=== PATIENT | female | born 1950 | race Caucasian/White ===

== ENCOUNTER 2019-10-01 12:36 | Outpatient (CLI) | payer MEDICARE, SELFPAY ==
[2019-10-01 14:07] LABS: Anion Gap 17.2 (5-19); Blood Urea Nitrogen 16 mg/dL (8-23); Calcium 10.3 mg/dL (8.5-10.5); Carbon Dioxide 26 mmol/L (22-29); Chloride 97 mmol/L (98-107); Glucose 161 mg/dL (65-115); Potassium 4.2 mmol/L (3.5-5.1); Sodium 136 mmol/L (136-145)
[2019-10-01 14:18] LABS: Creatinine Urine, Random 36 mg/dL (28-217); Microalbum Creatinine Ratio Ur 56 mg/dL (0-20); Microalbumin Random Urine 2 ug/dL (0-20)
== END 2019-10-01 12:37 | disposition home or self-care (01) ==
LOC: LAB 12:36
PROVIDERS: Family Provider Internal Medicine; PCP Internal Medicine; Visit Provider Internal Medicine Nephrology
DX: N18.9 Chronic kidney disease, unspecified (principal)
CPT/HCPCS: 80069; 82044

== ENCOUNTER → 2019-10-10 13:46 | Outpatient (BNVA) | payer MEDICARE, SELFPAY | PROVIDERS: Family Provider Internal Medicine; PCP Internal Medicine; Visit Provider Internal Medicine | DX: E11.9 Type 2 diabetes mellitus without complications (principal) | CPT/HCPCS: 83036 ==

== ENCOUNTER 2020-01-25 12:48 | Outpatient (CLI) | payer MEDICARE, SELFPAY ==
--- NOTE | 2020-01-25 13:00 | USCV_ITS ---
Noemí Kitchen Age: 69 Gender: F : 1950 Exam Date: 01/25/2020 13:20 Ordering Phys: Barrie Hays MD (Andy) ([email or web address]/[facility] [place]) Technologist: Janet Jaime Exam Location: [facility] [place] Indication: STENOSIS Risk Factors: Previous Vascular Surgery: Right Brachial BP: / Left Brachial BP: / Right Left Velocity (cm/s) Spectral Plaque Velocity (cm/s) Spectral Plaque Syst/Diast Broadening Syst/Diast Broadening 82.70/ 18.70 Prox CCA 56.50 / 18.60 52.90/ 12.10 Mid CCA 55.20 / 15.30 59.50/ 12.10 Distal CCA 47.90 / 15.30 30.80/ 11.50 Prox ICA 66.50 / 23.30 55.70/ 27.40 Mid ICA 68.80 / 20.00 54.00/ 18.90 Distal ICA 55.00 / 20.00 77.20 ECA 54.50 1.05 ICA/CCA 1.25 Antegrade Vertebral Antegrade 27.90/ 6.00 cm/s 40.00/ 13.80 cm/s Tri Subclavian Tri 67.10 98.10 FINDINGS Moderate heterogeneous plaques of the left bifurcation and ICA. Mild to moderate scattered plaques in the right ICA Antegrade flow in the vertebral arteries bilaterally Normal Doppler velocities in the subclavian arteries bilaterally. Normal Doppler velocities in the external carotid arteries bilaterally CONCLUSIONS Moderate heterogeneous plaques of the left bifurcation and internal carotid artery, with elevation of the velocity ratios suggesting 16 to 49% stenosis. Mild to moderate scattered plaque to the right internal carotid artery Compared to the study from 07/17/2019, there is some improvement of the stenosis, based on the flow velocities, on the left side Dr Lotus Tejeda MD [facility] (Electronically Signed) Final Date: 25 January 2020 18:28 S
== END 2020-01-25 12:49 | disposition home or self-care (01) ==
PROVIDERS: PCP Internal Medicine; Visit Provider Thoracic Surgery (Cardiothoracic Vascular Surgery)
DX: I65.23 Occlusion and stenosis of bilateral carotid arteries (principal)
CPT/HCPCS: 93880

== ENCOUNTER → 2020-04-01 14:10 | Outpatient (BNVA) | payer MEDICARE, SELFPAY | PROVIDERS: PCP Internal Medicine; Visit Provider Nurse Practitioner Family | DX: J06.9 Acute upper respiratory infection, unspecified (principal); Z11.59 Encounter for screening for other viral diseases; Z20.828 Contact with and (suspected) exposure to other viral communicable diseases | CPT/HCPCS: 87635 ==

== ENCOUNTER → 2020-04-16 11:23 | Outpatient (BNVA) | payer MEDICARE, SELFPAY | PROVIDERS: PCP Internal Medicine; Visit Provider Nurse Practitioner Family | DX: U07.1 COVID-19 (principal) | CPT/HCPCS: 87635 ==

== ENCOUNTER → 2020-05-28 13:46 | Outpatient (BNVA) | payer MEDICARE, SELFPAY | PROVIDERS: PCP Internal Medicine; Visit Provider Internal Medicine | DX: E11.22 Type 2 diabetes mellitus with diabetic chronic kidney disease (principal); I12.9 Hypertensive chronic kidney disease with stage 1 through stage 4 chronic kidney disease, or unspecified chronic kidney disease; N18.9 Chronic kidney disease, unspecified | CPT/HCPCS: 83036; 85025 ==

== ENCOUNTER → 2020-05-29 10:59 | Outpatient (BNVA) | payer MEDICARE, SELFPAY | PROVIDERS: PCP Internal Medicine; Visit Provider Internal Medicine | DX: E11.22 Type 2 diabetes mellitus with diabetic chronic kidney disease (principal); I12.9 Hypertensive chronic kidney disease with stage 1 through stage 4 chronic kidney disease, or unspecified chronic kidney disease; N18.9 Chronic kidney disease, unspecified | CPT/HCPCS: 80053; 84443 ==

== ENCOUNTER 2020-06-16 10:56 | Outpatient (CLI) | payer MEDICARE, SELFPAY ==
[2020-06-16 11:31] LABS: Basophils % 0.2 %; Eosinophils # 0.1 10^3/uL (0.0-0.8); Eosinophils % 0.7 %; Hematocrit 37.3 % (37.0-47.0); Hemoglobin 11.8 g/dL (11.5-15.3); Lymphocytes # 1.2 10^3/uL (0.8-4.8); Lymphocytes % 12.3 %; Mean Corpuscular HGB Conc 31.6 g/dL (30.0-36.0); Mean Corpuscular Hemoglobin 27.2 pg (28.0-34.0); Mean Corpuscular Volume 85.9 fL (81-99); Monocytes # 0.7 10^3/uL (0.2-0.9); Monocytes % 6.7 %; Neutrophils # 7.82 10^3/uL (1.8-7.7); Neutrophils % 79.7 %; Nucleated Red Blood Cells % 0 %; Platelet Count 248 10^3/cmm (130-400); Red Blood Count 4.34 10^6/uL (4.1-5.3); Red Cell Distribution Width 15.7 % (12.1-15.1); White Blood Count 9.8 10^3/uL (4.0-10.0)
[2020-06-16 11:50] LABS: Urine Creatinine 23 mg/dL (28-217); Urine Protein Random 7 mg/dL
[2020-06-16 12:03] LABS: Calcium 9.4 mg/dL (8.5-10.5); Parathyroid Hormone 43.5 pg/mL (15-65)
[2020-06-16 12:09] LABS: 25 Hydroxy Vitamin D 39 ng/mL (30-100); Anion Gap 14.4 (5-19); Blood Urea Nitrogen 30 mg/dL (8-23); Calcium 9.6 mg/dL (8.5-10.5); Carbon Dioxide 25 mmol/L (22-29); Chloride 102 mmol/L (98-107); Glomerular Filtration Rate 40.6 mL/min (90-130); Glucose 173 mg/dL (65-115); Phosphorus 2.8 mg/dL (2.5-4.5); Potassium 4.4 mmol/L (3.5-5.1); Sodium 137 mmol/L (136-145)
== END 2020-06-16 10:57 | disposition home or self-care (01) ==
LOC: LAB 11:01
PROVIDERS: PCP Internal Medicine; Visit Provider Registered Nurse
DX: N18.30 Chronic kidney disease, stage 3 unspecified (principal)
CPT/HCPCS: 36415; 80069; 82306; 82310; 82570; 83970; 84156; 85025

== ENCOUNTER 2020-12-22 12:29 | Outpatient (CLI) | payer MEDICARE, SELFPAY ==
[2020-12-22 13:25] LABS: Albumin Level 4.1 g/dL (3.5-5.2); Blood Urea Nitrogen 26 mg/dL (8-23); Calcium 9.5 mg/dL (8.5-10.5); Carbon Dioxide 28 mmol/L (22-29); Chloride 96 mmol/L (98-107); Glomerular Filtration Rate 37.3 mL/min (90-130); Glucose 265 mg/dL (65-115); Phosphorus 3.6 mg/dL (2.5-4.5); Sodium 132 mmol/L (136-145)
[2020-12-22 13:32] LABS: Creatinine Urine, Random 17 mg/dL (28-217); Microalbumin Random Urine 12 ug/dL (0-20)
[2020-12-22 13:39] LABS: Microalbum Creatinine Ratio Ur 706 mg/dL (0-20)
[2020-12-22 13:41] LABS: Calcium 9.2 mg/dL (8.5-10.5); Parathyroid Hormone 33.9 pg/mL (15-65)
[2020-12-22 13:50] LABS: Basophils % 0.5 %; Eosinophils # 0.1 10^3/uL (0.0-0.8); Eosinophils % 1.5 %; Hematocrit 40.2 % (37.0-47.0); Hemoglobin 12.6 g/dL (11.5-15.3); Lymphocytes # 1.4 10^3/uL (0.8-4.8); Mean Corpuscular HGB Conc 31.3 g/dL (30.0-36.0); Mean Corpuscular Hemoglobin 26.6 pg (28.0-34.0); Mean Corpuscular Volume 84.8 fL (81-99); Mean Platelet Volume 10.2 fL (7.4-10.4); Monocytes # 0.8 10^3/uL (0.2-0.9); Monocytes % 9.2 %; Neutrophils # 6.17 10^3/uL (1.8-7.7); Neutrophils % 72.3 %; Nucleated Red Blood Cells % 0 %; Platelet Count 269 10^3/cmm (130-400); Red Blood Count 4.74 10^6/uL (4.1-5.3); Red Cell Distribution Width 14.4 % (12.1-15.1); White Blood Count 8.5 10^3/uL (4.0-10.0)
== END 2020-12-22 12:30 | disposition home or self-care (01) ==
PROVIDERS: PCP Internal Medicine; Visit Provider Internal Medicine Nephrology
DX: N18.32 Chronic kidney disease, stage 3b (principal)
CPT/HCPCS: 80069; 82044; 82310; 83970; 85025

== ENCOUNTER 2021-02-09 11:33 | Outpatient (CLI) | payer MEDICARE, SELFPAY ==
--- NOTE | 2021-02-09 12:45 | USCV_ITS ---
Noemí Kitchen Age: 70 Gender: F : 1950 Exam Date: 02/09/2021 12:27 Ordering Phys: Barrie Hays MD (Andy) ([email or web address]/[facility] [place] Technologist: Carisa Gonsalves Exam Location: [facility] [place] Indication: RCEA Risk Factors: Unknown Previous Vascular Surgery: RCEA Right Brachial BP: / Left Brachial BP: / Right Left Velocity (cm/s) Spectral Plaque Velocity (cm/s) Spectral Plaque Syst/Diast Broadening Syst/Diast Broadening 89.30/ 18.70 Prox CCA 56.80 / 15.80 73.90/ 20.90 Mid CCA 47.50 / 15.30 67.30/ 15.40 Hetro Distal CCA 81.60 / 26.30 Hetro 42.10/ 11.00 Hetro Prox ICA 94.30 / 23.60 Hetro 61.40/ 16.50 Mid ICA 79.60 / 28.50 70.50/ 22.90 Distal ICA 90.10 / 30.00 80.00 Hetro ECA 176.30 Hetro 0.95 ICA/CCA 1.98 Antegrade Vertebral Antegrade 33.30/ 6.60 cm/s 41.30/ 13.80 cm/s Tri Subclavian Tri 62.80 122.5 0 FINDINGS Moderate heterogeneous plaques of the left bifurcation and proximal left internal carotid artery. Mild to moderate heterogeneous plaques of the right bifurcation and internal carotid artery. Heavy heterogeneous plaques at the proximal segment of the left external carotid artery. Antegrade flow in the vertebral arteries bilaterally Normal Doppler velocities in the subclavian arteries bilaterally CONCLUSIONS Moderate heterogeneous plaques of the left bifurcation and proximal left internal carotid artery with Doppler features consistent with less than 50% stenosis Mild to moderate heterogeneous plaques of the right bifurcation and internal carotid artery with Doppler features consistent with less than 50% stenosis. Elevated velocity in the external carotid artery on the left side, suggestive of hemodynamically significant stenosis. Dr Lotus Tejeda MD [facility] (Electronically Signed) Final Date: 10 February 2021 19:44 S
== END 2021-02-09 11:34 | disposition home or self-care (01) ==
LOC: US 11:42
PROVIDERS: PCP Internal Medicine; Visit Provider Thoracic Surgery (Cardiothoracic Vascular Surgery)
DX: I65.23 Occlusion and stenosis of bilateral carotid arteries (principal)
CPT/HCPCS: 93880

== ENCOUNTER → 2021-03-05 11:48 | Outpatient (BNVA) | payer MEDICARE, SELFPAY | PROVIDERS: PCP Internal Medicine; Visit Provider Internal Medicine | DX: E11.9 Type 2 diabetes mellitus without complications (principal); I10 Essential (primary) hypertension; I73.9 Peripheral vascular disease, unspecified | CPT/HCPCS: 80053; 83036; 84443 ==

== ENCOUNTER 2021-06-29 14:40 | Outpatient (CLI) | payer MEDICARE, SELFPAY ==
[2021-06-29 15:25] LABS: Basophils % 0.3 %; Eosinophils # 0.1 10^3/uL (0.0-0.8); Eosinophils % 0.6 %; Hematocrit 37.7 % (37.0-47.0); Lymphocytes # 1.7 10^3/uL (0.8-4.8); Lymphocytes % 16.6 %; Mean Corpuscular HGB Conc 31.8 g/dL (30.0-36.0); Mean Corpuscular Hemoglobin 27.6 pg (28.0-34.0); Mean Corpuscular Volume 86.7 fl (81-99); Mean Platelet Volume 10.4 fL (7.4-10.4); Monocytes # 0.8 10^3/uL (0.2-0.9); Monocytes % 7.5 %; Neutrophils # 7.67 10^3/uL (1.8-7.7); Neutrophils % 74.4 %; Nucleated Red Blood Cells % 0 %; Platelet Count 233 10^3/cmm (130-400); Red Blood Count 4.35 10^6/uL (4.1-5.3); Red Cell Distribution Width 15.5 % (12.1-15.1); White Blood Count 10.3 10^3/uL (4.0-10.0)
[2021-06-29 15:55] LABS: Calcium 9.7 mg/dL (8.5-10.5)
[2021-06-29 16:00] LABS: Albumin Level 3.8 g/dL (3.5-5.2); Anion Gap 15.4 (5-19); Blood Urea Nitrogen 21 mg/dL (8-23); Calcium 9.6 mg/dL (8.5-10.5); Carbon Dioxide 24 mmol/L (22-29); Chloride 102 mmol/L (98-107); Glomerular Filtration Rate 34.3 mL/min (90-130); Glucose 311 mg/dL (65-115); Phosphorus 2.3 mg/dL (2.5-4.5); Potassium 4.4 mmol/L (3.5-5.1); Sodium 137 mmol/L (136-145)
[2021-06-29 16:08] LABS: 25 Hydroxy Vitamin D 31 ng/mL (30-100)
[2021-06-29 16:17] LABS: Creatinine Urine, Random 17 mg/dL (28-217); Microalbumin Random Urine 2 ug/dL (0-20)
[2021-06-29 16:23] LABS: Microalbum Creatinine Ratio Ur 118 mg/dL (0-20)
== END 2021-06-29 14:41 | disposition home or self-care (01) ==
LOC: LAB 14:46
PROVIDERS: PCP Internal Medicine; Visit Provider Internal Medicine Nephrology
DX: N18.32 Chronic kidney disease, stage 3b (principal)
CPT/HCPCS: 36415; 80069; 82044; 82306; 82310; 83970; 85025

== ENCOUNTER 2021-07-28 08:51 | Outpatient (CLI) | payer MEDICARE, SELFPAY ==
[2021-07-28 09:13] VITALS: BMI 30.2
--- NOTE | 2021-07-28 09:13 | ECG_ITS ---
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 Interpretive Statements NAME OF STUDY: LEXISCAN SESTAMIBI STRESS TEST INDICATION: Chest Pain PROCEDURE: At the baseline, the blood pressure was 117/57 mmHg, oxygen saturation 96% with a heart rate of 71 bpm. The electrocardiogram showed normal sinus rhythm, normal axis. Poor anterior R wave progression. The Lexiscan was infused over a period of 20 seconds. A total of 0.4 milligrams of Lexiscan was infused. The stress phase was continued for a total of 5 minutes. Heart rate at the end of the stress phase was 96 bpm, oxygen saturation 97% with a blood pressure of 151/59 mmHg. The EKG at the peak infusion revealed sinus rhythm with no significant ST-T wave changes. The study was terminated due to protocol completion. Sestamibi was injected 20 seconds after the Lexiscan infusion. Blood pressure at the end of the recovery phase was 127/47 mmHg, oxygen saturation 98% with a heart rate of 79 beats per minute. CONCLUSION: 1. Normal EKG response to LexiScan infusion. 2. No LexiScan induced chest pain or cardiac arrhythmia. 3. Normal blood pressure and heart rate response. 4. Sestamibi/sestamibi perfusion scan pending; see separate report. Electronically Signed On 07-30-2021 17:40:26 SUBGRADE TESTER by Romina Betancourt M.D. [email or web address]
--- NOTE | 2021-07-28 09:14 | NMCV_ITS ---
NM anselmo perf SPECT r/s* [id number] Noemí Kitchen Age: 71 Gender: F : 1950 Exam Date: 07/28/2021 10:08 Ordering Phys: Romina Betancourt MD ([email or web address]) Technologist: ZAIDA Pillai Exam Location: [facility] Indications: SHORTNESS OF BREATH ON EXERTION STRESS TEST Please [facility] IMAGE PROTOCOL Rest/Stress 1 Lexiscan Day Radiopharmaceutical Dose (mCi) Administration Site Administered by Rest: Tc-99m 10.7 IV ZAIDA Astorga Sestamibi Stress:Tc-99m 32.4 IV ZAIDA Astorga Sestamibi Rest: 28-Jul-2021 60 Discovery 630 Stress: 28-Jul-2021 30 Discovery 630 Supine position only as patient was unable to lay prone. 0.4mg Lexiscan. SPECT RESULTS Technical Quality: Excellent Raw Data Analysis: Normal Image Corrections: No attenuation or motion correction applied Summed Stress Score: 3 Summed Rest Score: 0 Summed Difference Score: 3 PERFUSION FINDINGS Small sized perfusion abnormality of mild severiry of mid to apical anterior and apical lateral knight of stress images. FUNCTIONAL RESULTS (calculated via Gated SPECT) Stress Image LV EF (%): 81 Stress EDV (mL):36 TID: 0.94 Stress ESV (mL):7 FUNCTIONAL FINDINGS: The left ventricle is normal in size. Transient Ischemia Dilatation of 0.94. There is normal left ventricular systolic function. The left ventricular ejection fraction is normal with a value of 81%. There is normal left ventricular wall thickening with no regional wall abnormality. IMPRESSIONS 1. Small sized reversible perfusion abnormality of mild severiry of mid to apical anterior and apical lateral knight. 2. This may represent small area of ischemia in left anterior artery descending artery territory. However, in absence of prone imaging attenuation artifact cannot be ruled out. 3. Overall left ventricular systolic function is normal without regional wall motion abnormalities, LVEF=81%. 4. No prior similar studies to compare. Romina Betancourt MD (Electronically Signed) Final Date: 29 July 2021 12:20 S
[2021-07-28] MEDS: aminophylline 25 mg/mL SDV 10 mL IVP (11:04)
[2021-07-28 11:17] VITALS: BP 127/47; PULSE 79
== END 2021-07-28 08:52 | disposition home or self-care (01) ==
PROVIDERS: PCP Internal Medicine; Visit Provider Internal Medicine Cardiovascular Disease
DX: R06.09 Other forms of dyspnea (principal); I73.9 Peripheral vascular disease, unspecified; R06.02 Shortness of breath
CPT/HCPCS: 78452; 93017; A9500; J0280

== ENCOUNTER 2021-08-19 15:12 | Outpatient (CLI) | payer MEDICARE, SELFPAY ==
--- NOTE | 2021-08-19 15:45 | USCV_ITS ---
Imtiaz Noemí Age: 71 Gender: F : 1950 Exam Date: 08/19/2021 15:51 Ordering Phys: Romina Betancourt MD ([email or web address]) Technologist: MARINO [place] [facility] [place]: KNOWN OCCLUDED SFA Risk Factors: Previous Vascular Surgery: RIGHT LEFT BP: 136.0 / 68.00 BP: 137.0/ 87.00 0 0 Waveform Velocity (cm/s) Velocity (cm/s) Waveform Triphasic 93.3 Iliac Prox 105.1 Triphasic Triphasic 110.3 Iliac Mid 137.7 Triphasic Triphasic 197.0 Iliac Distal 136.5 Triphasic Triphasic 150.7 PAID INTERN 147.6 Monophasic Triphasic 158.5 SFA Prox 202.0 Monophasic Triphasic 124.6 SFA Mid 121.2 Monophasic Triphasic SFA Dist Monophasic 155.1 214.1 Triphasic 88.0 POP 70.1 Monophasic Triphasic 86.3 PRIMARY CARE PROVIDER 46.1 Monophasic Triphasic 121.3 DPA 34.2 Monophasic 1.0 BERKLEY 0.7 FINDINGS Normal resting BERKLEY of 1.0 on the right side Abnormal resting BERKLEY 0.7 on the left side. Moderate to heavy diffuse plaques on the left side involving the superficial femoral artery CONCLUSIONS Moderate PAD based on the BERKLEY on the left side. Moderate to heavy diffuse plaques in the superficial femoral artery on the left side. Normal resting BERKLEY on the right side. Consider exercise BERKLEY to better evaluate the functional significance. Dr Lotus Tejeda MD [facility] (Electronically Signed) Final Date: 21 August 2021 15:46 S
== END 2021-08-19 15:13 | disposition home or self-care (01) ==
LOC: RAD 15:17
PROVIDERS: PCP Internal Medicine; Visit Provider Internal Medicine Cardiovascular Disease
DX: I73.9 Peripheral vascular disease, unspecified (principal); I70.8 Atherosclerosis of other arteries
CPT/HCPCS: 93925

== ENCOUNTER → 2021-11-25 09:59 | Outpatient (BNVA) | payer MEDICARE, SELFPAY | PROVIDERS: PCP Internal Medicine; Visit Provider Specialist | DX: Z87.891 Personal history of nicotine dependence (principal); M25.561 Pain in right knee | CPT/HCPCS: 73560; 73565; 99203; 99204 ==

== ENCOUNTER 2021-12-16 13:13 | Outpatient (CLI) | payer MEDICARE, SELFPAY ==
--- NOTE | 2021-12-16 13:45 | MR_ITS ---
WS: [id number] MRI RIGHT KNEE HISTORY: pain COMPARISON: Radiograph 11/25/2021 Anterior cruciate ligament: Intact. Posterior cruciate ligament: Intact. Medial collateral ligament: Intact. Posterior lateral corner structures: Intact. Medial menisci: Mild intrasubstance degeneration in the posterior horn. No tear confirmed. Very minim al subluxation from the joint line. There is fraying along the articular surface of the posterior hor n towards the free edge with very minimal blunting. No definite tear. Lateral meniscus: Mild surface fraying along the posterior horn. Very slight blunting of the free edg e. I do believe there is probably a radial tear at the free edge secondary to the blunting of the pos terior horn. Extensor mechanism: Distal quadriceps tendon and patellar tendons are intact. Fluid and soft tissue: Small suprapatellar joint effusion. No Hunt's cyst. Osseous and articular structures: Patellofemoral compartment: Mild narrowing of the patellofemoral compartment. No marrow edema. There is mild thinning and fraying along the cartilage but no full-thickness defect. Medial compartment: Mild narrowing of the medial compartment. Moderate loss of cartilage involving th e weightbearing surface of the femoral condyle. Mild chondromalacia involving the medial tibial plate au. There are small osteophytes along the joint line. No fracture or marrow edema. Lateral compartment: Moderate narrowing of the lateral compartment. Moderate chondromalacia along the weightbearing surface of the femoral condyle. There are full-thickness defects in the cartilage exte nding to the cortical surface. There is additional milder chondromalacia involving the tibial platea u. Greatest area of narrowing is at the site of the suspected radial tear involving the posterior hor n. Small marginal osteophytes. MR/MR knee RT wo con* [id number] IMPRESSION: 1. Moderate degenerative osteoarthritis lateral compartment with joint space n arrowing and chondromalacia along the weightbearing surface of the femoral cond yle. Mild chondromalacia involving the lateral tibial plateau. 2. Mild narrowing medial compartment with moderate loss of the cartilage along the weightbearing surface of the femoral condyle. 3. Suspect radial tear posterior horn lateral meniscus at the free edge. 4. Bilateral mild fraying along the meniscal surfaces of the posterior horns, bilateral.
== END 2021-12-16 13:14 | disposition home or self-care (01) ==
LOC: RAD 13:15
PROVIDERS: PCP Internal Medicine; Visit Provider Specialist
DX: M17.11 Unilateral primary osteoarthritis, right knee (principal); M94.261 Chondromalacia, right knee
CPT/HCPCS: 73721

== ENCOUNTER 2021-12-28 12:08 | Outpatient (CLI) | payer MEDICARE, SELFPAY ==
[2021-12-28 13:00] LABS: Basophils % 0.4 %; Eosinophils # 0.2 10^3/uL (0.0-0.8); Eosinophils % 1.3 %; Hematocrit 36.4 % (37.0-47.0); Hemoglobin 11.7 g/dL (11.5-15.3); Lymphocytes # 1.4 10^3/uL (0.8-4.8); Lymphocytes % 12.5 %; Mean Corpuscular HGB Conc 32.1 g/dL (30.0-36.0); Mean Corpuscular Hemoglobin 26.8 pg (28.0-34.0); Mean Corpuscular Volume 83.5 fl (81-99); Mean Platelet Volume 10.4 fL (7.4-10.4); Monocytes # 0.8 10^3/uL (0.2-0.9); Monocytes % 6.6 %; Neutrophils # 8.96 10^3/uL (1.8-7.7); Neutrophils % 78.4 %; Nucleated Red Blood Cells % 0 %; Platelet Count 306 10^3/cmm (130-400); Red Blood Count 4.36 10^6/uL (4.1-5.3); Red Cell Distribution Width 14.6 % (12.1-15.1); White Blood Count 11.4 10^3/uL (4.0-10.0)
[2021-12-28 13:31] LABS: Calcium 9.6 mg/dL (8.5-10.5)
[2021-12-28 13:33] LABS: Albumin Level 3.8 g/dL (3.5-5.2); Anion Gap 16.8 (5-19); Blood Urea Nitrogen 18 mg/dL (8-23); Calcium 8.7 mg/dL (8.5-10.5); Carbon Dioxide 24 mmol/L (22-29); Chloride 98 mmol/L (98-107); Glomerular Filtration Rate 40.5 mL/min (90-130); Glucose 284 mg/dL (65-115); Phosphorus 2.7 mg/dL (2.5-4.5); Potassium 4.8 mmol/L (3.5-5.1); Sodium 134 mmol/L (136-145)
[2021-12-28 13:37] LABS: Parathyroid Hormone 42.6 pg/mL (15-65)
[2021-12-28 13:38] LABS: Creatinine Urine, Random 37 mg/dL (28-217); Microalbumin Random Urine 10 ug/dL (0-20)
[2021-12-28 13:39] LABS: Microalbum Creatinine Ratio Ur 270 mg/dL (0-20)
== END 2021-12-28 12:09 | disposition home or self-care (01) ==
PROVIDERS: PCP Internal Medicine; Visit Provider Internal Medicine Nephrology
DX: N18.32 Chronic kidney disease, stage 3b (principal)
CPT/HCPCS: 36415; 80069; 82044; 82310; 83970; 85025

== ENCOUNTER → 2022-02-03 12:43 | Outpatient (BNVA) | payer MEDICARE, SELFPAY | PROVIDERS: PCP Internal Medicine; Visit Provider Specialist | DX: Z09 Encounter for follow-up examination after completed treatment for conditions other than malignant neoplasm (principal); M25.561 Pain in right knee | CPT/HCPCS: 99213 ==

== ENCOUNTER → 2022-02-16 10:25 | Outpatient (BNVA) | payer MEDICARE, SELFPAY | PROVIDERS: PCP Internal Medicine; Visit Provider Podiatrist Foot & Ankle Surgery | DX: Z79.4 Long term (current) use of insulin (principal); E11.8 Type 2 diabetes mellitus with unspecified complications; I73.9 Peripheral vascular disease, unspecified; L84 Corns and callosities; M21.41 Flat foot [pes planus] (acquired), right foot; M21.42 Flat foot [pes planus] (acquired), left foot; M21.621 Bunionette of right foot; M21.622 Bunionette of left foot; M25.561 Pain in right knee; E11.42 Type 2 diabetes mellitus with diabetic polyneuropathy; L60.3 Nail dystrophy | CPT/HCPCS: 11056; 11721 ==

== ENCOUNTER → 2022-03-08 10:42 | Outpatient (BNVA) | payer MEDICARE, SELFPAY | PROVIDERS: PCP Internal Medicine; Visit Provider Specialist | DX: M16.11 Unilateral primary osteoarthritis, right hip (principal); M25.551 Pain in right hip | CPT/HCPCS: 73502; 99213 ==

== ENCOUNTER 2022-03-08 11:57 | Outpatient (CLI) | payer MEDICARE, SELFPAY ==
[2022-03-08 13:15] LABS: Basophils # 0.1 10^3/uL (0.0-0.1); Basophils % 0.4 %; Eosinophils # 0.1 10^3/uL (0.0-0.8); Eosinophils % 0.5 %; Hematocrit 35.7 % (37.0-47.0); Hemoglobin 11.3 g/dL (11.5-15.3); Lymphocytes # 1.4 10^3/uL (0.8-4.8); Lymphocytes % 10.2 %; Mean Corpuscular HGB Conc 31.7 g/dL (30.0-36.0); Mean Corpuscular Hemoglobin 26.4 pg (28.0-34.0); Mean Corpuscular Volume 83.4 fl (81-99); Mean Platelet Volume 10.2 fL (7.4-10.4); Monocytes # 0.8 10^3/uL (0.2-0.9); Monocytes % 6.3 %; Neutrophils # 10.96 10^3/uL (1.8-7.7); Neutrophils % 81.9 %; Nucleated Red Blood Cells % 0 %; Platelet Count 316 10^3/cmm (130-400); Red Blood Count 4.28 10^6/uL (4.1-5.3); White Blood Count 13.4 10^3/uL (4.0-10.0)
[2022-03-08 13:52] LABS: Calcium 9.4 mg/dL (8.5-10.5)
[2022-03-08 13:56] LABS: Creatinine Urine, Random 39 mg/dL (28-217); Microalbumin Random Urine 10 ug/dL (0-20)
[2022-03-08 13:59] LABS: Parathyroid Hormone 57.3 pg/mL (15-65)
[2022-03-08 14:05] LABS: Microalbum Creatinine Ratio Ur 256 mg/dL (0-20)
[2022-03-08 14:11] LABS: 25 Hydroxy Vitamin D 42 ng/mL (30-100); Anion Gap 15.1 (5-19); Blood Urea Nitrogen 24 mg/dL (8-23); Calcium 9.2 mg/dL (8.5-10.5); Carbon Dioxide 24 mmol/L (22-29); Chloride 101 mmol/L (98-107); Glucose 261 mg/dL (65-115); Phosphorus 2.5 mg/dL (2.5-4.5); Potassium 5.1 mmol/L (3.5-5.1); Sodium 135 mmol/L (136-145)
== END 2022-03-08 11:58 | disposition home or self-care (01) ==
PROVIDERS: PCP Internal Medicine; Visit Provider Internal Medicine Nephrology
DX: N18.32 Chronic kidney disease, stage 3b (principal)
CPT/HCPCS: 80069; 82044; 82306; 82310; 83970; 85025

== ENCOUNTER → 2022-03-11 10:45 | Outpatient (BNVA) | payer MEDICARE, SELFPAY | PROVIDERS: PCP Internal Medicine; Visit Provider Internal Medicine Cardiovascular Disease | DX: R00.2 Palpitations (principal); R06.02 Shortness of breath; I12.9 Hypertensive chronic kidney disease with stage 1 through stage 4 chronic kidney disease, or unspecified chronic kidney disease; E11.22 Type 2 diabetes mellitus with diabetic chronic kidney disease; N18.9 Chronic kidney disease, unspecified; Z87.891 Personal history of nicotine dependence; Z79.4 Long term (current) use of insulin | CPT/HCPCS: 99214 ==

== ENCOUNTER 2022-05-14 16:20 | Outpatient (CLI) | payer MEDICARE, SELFPAY ==
--- NOTE | 2022-05-14 17:15 | USCV_ITS ---
Noemí Kitchen Age: 72 Gender: F : 1950 Exam Date: 05/14/2022 16:44 Ordering Phys: Barrie Hays MD (Andy) ([email or web address]/[facility] [place] Technologist: SCOTT [place] [facility] [place]: Carotid stenosis Risk Factors: Previous Vascular Surgery: Right Brachial BP: / Left Brachial BP: / Right Left Velocity (cm/s) Spectral Plaque Velocity (cm/s) Spectral Plaque Syst/Diast Broadening Syst/Diast Broadening 88.60/ 19.40 Prox CCA 75.40 / 15.50 73.80/ 18.60 Mid CCA 73.50 / 16.20 88.60/ 15.50 Distal CCA 66.70 / 15.40 118.00/24.30 Prox ICA 97.30 / 17.10 108.10/16.50 Mid ICA 119.60/ 26.30 132.30/25.40 Distal ICA 88.10 / 28.80 94.80 ECA 126.20 1.49 ICA/CCA 1.59 Vertebral 59.80/ 7.90 cm/s 69.10/ 17.10 cm/s Subclavian 151.1 146.0 0 0 FINDINGS Comparison:. 02/09/21 Mild increased velocity in the carotid arteries with turbulence. Minimal progression since the prior exam. Diffuse scattered plaque throughout the arteries. Antegrade vertebral arteries. CONCLUSIONS Bilateral ICA stenosis less than 50%. Diffuse atherosclerosis with mild progression since the prior exam. Dr. Marce Valencia DO (Electronically Signed) Final Date: 17 May 2022 07:41 S
== END 2022-05-14 16:21 | disposition home or self-care (01) ==
LOC: RAD 16:21
PROVIDERS: PCP Internal Medicine; Visit Provider Thoracic Surgery (Cardiothoracic Vascular Surgery)
DX: I65.23 Occlusion and stenosis of bilateral carotid arteries (principal); I70.90 Unspecified atherosclerosis
CPT/HCPCS: 93880

== ENCOUNTER → 2022-05-18 11:44 | Outpatient (BNVA) | payer MEDICARE, SELFPAY | PROVIDERS: PCP Internal Medicine; Visit Provider Podiatrist Foot & Ankle Surgery | DX: E11.8 Type 2 diabetes mellitus with unspecified complications (principal); I73.9 Peripheral vascular disease, unspecified; L84 Corns and callosities; M21.41 Flat foot [pes planus] (acquired), right foot; M21.42 Flat foot [pes planus] (acquired), left foot; M21.621 Bunionette of right foot; M21.622 Bunionette of left foot; M25.561 Pain in right knee; E11.42 Type 2 diabetes mellitus with diabetic polyneuropathy; L60.3 Nail dystrophy; Z79.4 Long term (current) use of insulin | CPT/HCPCS: 11056; 11721 ==

== ENCOUNTER → 2022-05-20 14:36 | Outpatient (BNVA) | payer MEDICARE, SELFPAY | PROVIDERS: PCP Internal Medicine; Visit Provider Thoracic Surgery (Cardiothoracic Vascular Surgery) | DX: Z98.890 Other specified postprocedural states (principal) | CPT/HCPCS: 99212 ==

== ENCOUNTER → 2022-05-24 15:40 | Outpatient (BNVA) | payer MEDICARE, SELFPAY | PROVIDERS: PCP Internal Medicine; Visit Provider Internal Medicine | DX: E11.9 Type 2 diabetes mellitus without complications (principal) | CPT/HCPCS: 83036 ==

== ENCOUNTER 2022-05-28 12:52 | Outpatient (CLI) | payer MEDICARE, SELFPAY ==
--- NOTE | 2022-05-28 13:00 | MR_ITS ---
WS: [id number] MRI RIGHT HIP NONCONTRAST TECHNIQUE: Axial T1, axial T2 fat sat, coronal T1, coronal STIR, sagittal T2 fat sat, sagittal T1, an d sagittal T2 fat sat, of both hips. CLINICAL INFORMATION: hip pain COMPARISON: None. FINDINGS: Moderate degenerative arthritis RIGHT hip with joint space narrowing. No acute fractures. Small focus of edema in the superior RIGHT femoral head with decreased signal serpiginous margin suspicious for avascular necrosis. Otherwise normal bone marrow signal in the RIGHT femoral head and neck. Normal bone marrow signal in the acetabulum. Normal bone marrow signal in the pelvis and sacrum. Proximal femoral shafts are normal in appearance. No evidence of sacral insufficiency fracture. MR/MR hip RT wo con* [id number] IMPRESSION: 1. Moderate degenerative arthritis RIGHT hip with joint space narrowing and ch ondromalacia. 2. Small focus of edema RIGHT femoral head with a tiny suspected area of avasc ular necrosis with serpiginous margins. No evidence of femoral head collapse. 3. Normal bone marrow signal in the LEFT hip. 4. Normal bone marrow signal in the pelvis and sacrum. No evidence of insuffic iency fractures. 5. Normal soft tissues.
== END 2022-05-28 12:53 | disposition home or self-care (01) ==
LOC: RAD 12:54
PROVIDERS: PCP Internal Medicine; Visit Provider Specialist
DX: M16.11 Unilateral primary osteoarthritis, right hip (principal)
CPT/HCPCS: 73721

== ENCOUNTER → 2022-09-23 10:54 | Outpatient (BNVA) | payer MEDICARE, SELFPAY | PROVIDERS: PCP Family Medicine Adult Medicine; Visit Provider Podiatrist Foot & Ankle Surgery | DX: E11.8 Type 2 diabetes mellitus with unspecified complications (principal); I73.9 Peripheral vascular disease, unspecified; L84 Corns and callosities; M21.41 Flat foot [pes planus] (acquired), right foot; M21.42 Flat foot [pes planus] (acquired), left foot; M21.621 Bunionette of right foot; M21.622 Bunionette of left foot; M25.561 Pain in right knee; E11.42 Type 2 diabetes mellitus with diabetic polyneuropathy; L60.3 Nail dystrophy; Z79.4 Long term (current) use of insulin | CPT/HCPCS: 11056; 11721 ==

== ENCOUNTER → 2022-09-29 13:44 | Outpatient (BNVA) | payer MEDICARE, SELFPAY | PROVIDERS: PCP Family Medicine Adult Medicine; Visit Provider Family Medicine Adult Medicine | DX: E78.9 Disorder of lipoprotein metabolism, unspecified (principal); E11.9 Type 2 diabetes mellitus without complications; I10 Essential (primary) hypertension; I63.9 Cerebral infarction, unspecified | CPT/HCPCS: 80053; 80061; 83036 ==

== ENCOUNTER → 2022-11-25 10:46 | Outpatient (BNVA) | payer MEDICARE, SELFPAY | PROVIDERS: PCP Family Medicine Adult Medicine; Visit Provider Podiatrist Foot & Ankle Surgery | DX: I73.9 Peripheral vascular disease, unspecified (principal); E11.8 Type 2 diabetes mellitus with unspecified complications; L84 Corns and callosities; M21.41 Flat foot [pes planus] (acquired), right foot; M21.42 Flat foot [pes planus] (acquired), left foot; M21.621 Bunionette of right foot; M21.622 Bunionette of left foot; E11.42 Type 2 diabetes mellitus with diabetic polyneuropathy; L60.3 Nail dystrophy; Z79.4 Long term (current) use of insulin | CPT/HCPCS: 11056; 11721 ==

== ENCOUNTER → 2022-12-01 12:31 | Outpatient (BNVA) | payer MEDICARE, SELFPAY | PROVIDERS: PCP Family Medicine Adult Medicine; Referring Provider Family Medicine Adult Medicine; Visit Provider Internal Medicine | DX: E11.29 Type 2 diabetes mellitus with other diabetic kidney complication (principal); N18.30 Chronic kidney disease, stage 3 unspecified; E78.9 Disorder of lipoprotein metabolism, unspecified; E78.5 Hyperlipidemia, unspecified; Z79.4 Long term (current) use of insulin; Z86.73 Personal history of transient ischemic attack (TIA), and cerebral infarction without residual deficits; Z79.84 Long term (current) use of oral hypoglycemic drugs | CPT/HCPCS: 99204 ==

== ENCOUNTER → 2023-02-17 10:51 | Outpatient (BNVA) | payer MEDICARE, SELFPAY | PROVIDERS: PCP Family Medicine Adult Medicine; Visit Provider Podiatrist Foot & Ankle Surgery | DX: I73.9 Peripheral vascular disease, unspecified (principal); L84 Corns and callosities; L60.3 Nail dystrophy; E11.65 Type 2 diabetes mellitus with hyperglycemia; M21.41 Flat foot [pes planus] (acquired), right foot; M21.42 Flat foot [pes planus] (acquired), left foot; M21.621 Bunionette of right foot; M21.622 Bunionette of left foot | CPT/HCPCS: 11056; 11721 ==

== ENCOUNTER → 2023-03-02 10:35 | Outpatient (BNVA) | payer MEDICARE, SELFPAY | PROVIDERS: PCP Family Medicine Adult Medicine; Visit Provider Internal Medicine | DX: N18.30 Chronic kidney disease, stage 3 unspecified (principal); E78.9 Disorder of lipoprotein metabolism, unspecified; E11.9 Type 2 diabetes mellitus without complications | CPT/HCPCS: 80053; 80061; 82043; 83036 ==

== ENCOUNTER → 2023-03-08 12:33 | Outpatient (BNVA) | payer MEDICARE, SELFPAY | PROVIDERS: PCP Family Medicine Adult Medicine; Visit Provider Internal Medicine | DX: E11.29 Type 2 diabetes mellitus with other diabetic kidney complication (principal); E11.65 Type 2 diabetes mellitus with hyperglycemia; N18.30 Chronic kidney disease, stage 3 unspecified; E78.9 Disorder of lipoprotein metabolism, unspecified; Z79.84 Long term (current) use of oral hypoglycemic drugs; Z79.4 Long term (current) use of insulin | CPT/HCPCS: 99214 ==

== ENCOUNTER → 2023-04-04 12:25 | Outpatient (BNVA) | payer MEDICARE, SELFPAY | PROVIDERS: PCP Family Medicine Adult Medicine; Visit Provider Registered Nurse | DX: N18.30 Chronic kidney disease, stage 3 unspecified (principal) | CPT/HCPCS: 80069; 82043; 82306; 82310; 83970; 85025 ==

== ENCOUNTER → 2023-04-11 11:02 | Outpatient (BNVA) | payer MEDICARE, SELFPAY | PROVIDERS: PCP Family Medicine Adult Medicine; Visit Provider Family Medicine Adult Medicine | DX: N18.30 Chronic kidney disease, stage 3 unspecified (principal) | CPT/HCPCS: 80069; 82043; 82306; 82310; 83970; 85025 ==

== ENCOUNTER → 2023-04-12 10:46 | Outpatient (BNVA) | payer MEDICARE, SELFPAY | PROVIDERS: PCP Family Medicine Adult Medicine; Visit Provider Internal Medicine Cardiovascular Disease | DX: R00.2 Palpitations (principal); I12.9 Hypertensive chronic kidney disease with stage 1 through stage 4 chronic kidney disease, or unspecified chronic kidney disease; E11.22 Type 2 diabetes mellitus with diabetic chronic kidney disease; E11.65 Type 2 diabetes mellitus with hyperglycemia; N18.30 Chronic kidney disease, stage 3 unspecified; Z87.891 Personal history of nicotine dependence; Z79.84 Long term (current) use of oral hypoglycemic drugs; R06.02 Shortness of breath; Z98.890 Other specified postprocedural states | CPT/HCPCS: 83550; 99214 ==

== ENCOUNTER 2023-04-14 11:19 | Outpatient (CLI) | payer MEDICARE, SELFPAY | END 2023-04-14 11:20 | disposition home or self-care (01) | LOC: LAB 11:21 | PROVIDERS: PCP Family Medicine Adult Medicine; Visit Provider Registered Nurse | DX: D50.9 Iron deficiency anemia, unspecified (principal) | CPT/HCPCS: 82274 ==

== ENCOUNTER → 2023-04-19 13:12 | Outpatient (BNVA) | payer MEDICARE, SELFPAY | PROVIDERS: PCP Family Medicine Adult Medicine; Visit Provider Family Medicine Adult Medicine | DX: D50.9 Iron deficiency anemia, unspecified (principal); N18.30 Chronic kidney disease, stage 3 unspecified; E78.9 Disorder of lipoprotein metabolism, unspecified; I10 Essential (primary) hypertension | CPT/HCPCS: 85025 ==

== ENCOUNTER → 2023-05-30 12:57 | Outpatient (BNVA) | payer MEDICARE, SELFPAY | PROVIDERS: PCP Family Medicine Adult Medicine; Visit Provider Internal Medicine | DX: E78.9 Disorder of lipoprotein metabolism, unspecified (principal); N18.30 Chronic kidney disease, stage 3 unspecified; E11.9 Type 2 diabetes mellitus without complications; E75.6 Lipid storage disorder, unspecified | CPT/HCPCS: 80053; 80061; 82043; 83036 ==

== ENCOUNTER 2023-06-06 12:18 | Outpatient (CLI) | payer MEDICARE, SELFPAY ==
[2023-06-06 12:35] LABS: Basophils % 0.4 %; Eosinophils # 0.2 10^3/uL (0.0-0.8); Eosinophils % 2.1 %; Hematocrit 34.3 % (36-47); Lymphocytes # 1.7 10^3/uL (0.8-4.8); Lymphocytes % 19.8 %; Mean Corpuscular HGB Conc 32.1 g/dL (30-55); Mean Corpuscular Hemoglobin 27.2 pg (27-33); Mean Corpuscular Volume 84.7 fl (85-98); Mean Platelet Volume 9.6 fL (7.4-10.4); Monocytes # 0.7 10^3/uL (0.2-0.9); Monocytes % 7.7 %; Neutrophils # 5.96 10^3/uL (1.8-7.7); Neutrophils % 69.8 %; Nucleated Red Blood Cells % 0 %; Platelet Count 282 10^3/cmm (157-399); Red Blood Count 4.05 10^6/uL (3.85-5.65); Red Cell Distribution Width 18.2 % (12.1-15.1); White Blood Count 8.54 10^3/uL (3.29-11.43)
[2023-06-06 12:51] LABS: Albumin Level 3.8 g/dL (3.5-5.2); Anion Gap 12.8 (5-19); Blood Urea Nitrogen 19 mg/dL (8-23); Calcium 9.5 mg/dL (8.5-10.5); Carbon Dioxide 28 mmol/L (22-29); Chloride 101 mmol/L (98-107); Ferritin 73 ng/mL (15-150); Glucose 199 mg/dL (65-115); Iron 63 ug/dL (37-145); Percent Saturation 22.4 % (20-50); Potassium 4.8 mmol/L (3.5-5.1); Sodium 137 mmol/L (136-145); Total Iron Binding Capacity 281 mcg/dl; Unsaturated Iron Binding 218 ug/dL (112-347)
== END 2023-06-06 12:19 | disposition home or self-care (01) ==
PROVIDERS: PCP Family Medicine Adult Medicine; Visit Provider Internal Medicine Nephrology
DX: Z01.89 Encounter for other specified special examinations (principal); E11.65 Type 2 diabetes mellitus with hyperglycemia; E11.22 Type 2 diabetes mellitus with diabetic chronic kidney disease; N18.30 Chronic kidney disease, stage 3 unspecified; E78.9 Disorder of lipoprotein metabolism, unspecified; Z79.84 Long term (current) use of oral hypoglycemic drugs; Z79.4 Long term (current) use of insulin
CPT/HCPCS: 36415; 80069; 82728; 83540; 83550; 85025; 99214

== ENCOUNTER 2023-06-20 10:49 | Outpatient (CLI) | payer MEDICARE, SELFPAY ==
--- NOTE | 2023-06-20 11:15 | USCV_ITS ---
Noemí Kitchen Age: 73 Gender: F : 1950 Exam Date: 06/20/2023 11:05 Ordering Phys: Barrie Hays MD (Andy) ([email or web address]/[facility] [place]) Technologist: SCOTT [place] [facility] [place]: carotid stenosis Risk Factors: Unknown Previous Vascular Surgery: Right Brachial BP: / Left Brachial BP: / Right Left Velocity (cm/s) Spectral Plaque Velocity (cm/s) Spectral Plaque Syst/Diast Broadening Syst/Diast Broadening 69.10/ 17.90 Prox CCA 74.60 / 26.40 61.40/ 18.60 Mid CCA 69.90 / 21.80 46.60/ 12.40 Distal CCA 69.50 / 24.30 175.60/59.00 Antonio Prox ICA 96.50 / 36.20 Antonio 225.20/32.20 Antonio Mid ICA 61.70 / 24.70 142.80/38.20 Distal ICA 95.00 / 35.80 Antonio 52.50 ECA 273.40 3.26 ICA/CCA 1.29 Antegrade Vertebral Antegrade 42.70/ 10.10 cm/s 80.80/ 23.30 cm/s Tri Subclavian Tri 111.9 116.4 0 0 FINDINGS Comparison:. 05/14/22 Increase in velocity and stenosis right ICA. Atherosclerotic plaque bilaterally. Antegrade vertebral arteries. CONCLUSIONS Right ICA stenosis 50-69%. Progressing stenosis since 2021. Left ICA stenosis < 50%. Dr. Marce Valencia DO (Electronically Signed) Final Date: 20 June 2023 15:55 S
== END 2023-06-20 10:50 | disposition home or self-care (01) ==
LOC: RAD 10:49
PROVIDERS: PCP Family Medicine Adult Medicine; Visit Provider Thoracic Surgery (Cardiothoracic Vascular Surgery)
DX: I65.23 Occlusion and stenosis of bilateral carotid arteries (principal)
CPT/HCPCS: 93880

== ENCOUNTER → 2023-06-23 13:54 | Outpatient (BNVA) | payer MEDICARE, SELFPAY | PROVIDERS: PCP Family Medicine Adult Medicine; Visit Provider Thoracic Surgery (Cardiothoracic Vascular Surgery) | DX: Z98.890 Other specified postprocedural states (principal); I65.23 Occlusion and stenosis of bilateral carotid arteries; Z87.891 Personal history of nicotine dependence | CPT/HCPCS: 99213 ==

== ENCOUNTER → 2023-06-28 10:25 | Outpatient (BNVA) | payer MEDICARE, SELFPAY | PROVIDERS: PCP Family Medicine Adult Medicine; Visit Provider Podiatrist Foot & Ankle Surgery | DX: I73.9 Peripheral vascular disease, unspecified (principal); L84 Corns and callosities; M21.41 Flat foot [pes planus] (acquired), right foot; M21.42 Flat foot [pes planus] (acquired), left foot; M21.621 Bunionette of right foot; M21.622 Bunionette of left foot; E11.65 Type 2 diabetes mellitus with hyperglycemia; L60.3 Nail dystrophy | CPT/HCPCS: 11056; 11721 ==

== ENCOUNTER 2023-08-03 12:39 | Outpatient (CLI) | payer MEDICARE, SELFPAY ==
--- NOTE | 2023-08-03 13:05 | MM_ITS ---
WS: [id number] BILATERAL 3D TOMOSYNTHESIS DIGITAL SCREENING MAMMOGRAPHY WITH CAD CLINICAL INFORMATION: SCREEN HISTORY: Screening mammogram. No current complaints. COMPARISON: 2016 TECHNIQUE: Bilateral CC and MLO views. FINDINGS: Scattered fibroglandular densities bilaterally. No suspicious focal mass, asymmetry, calcifications, or architectural distortion. No evidence of malignancy. Incidental punctate and lucent centered calci fications. IMPRESSION: MM/[place] [id number] BI-RADS: 2-Benign FOLLOW UP: 1 Year Follow-up Recommend return to annual screening mammography.
== END 2023-08-03 12:40 | disposition home or self-care (01) ==
LOC: RAD 12:39
PROVIDERS: PCP Family Medicine Adult Medicine; Visit Provider Family Medicine Adult Medicine
DX: Z12.31 Encounter for screening mammogram for malignant neoplasm of breast (principal)
CPT/HCPCS: 77063; 77067

== ENCOUNTER → 2023-09-23 11:25 | Outpatient (BNVA) | payer MEDICARE, SELFPAY | PROVIDERS: PCP Family Medicine Adult Medicine; Visit Provider Internal Medicine | DX: E11.42 Type 2 diabetes mellitus with diabetic polyneuropathy (principal); E11.65 Type 2 diabetes mellitus with hyperglycemia; N18.30 Chronic kidney disease, stage 3 unspecified; E78.9 Disorder of lipoprotein metabolism, unspecified; E11.22 Type 2 diabetes mellitus with diabetic chronic kidney disease; Z79.4 Long term (current) use of insulin | CPT/HCPCS: 99214 ==

== ENCOUNTER → 2023-10-25 11:12 | Outpatient (BNVA) | payer MEDICARE, SELFPAY | PROVIDERS: PCP Family Medicine Adult Medicine; Visit Provider Podiatrist Foot & Ankle Surgery | DX: I73.9 Peripheral vascular disease, unspecified (principal); L84 Corns and callosities; E11.65 Type 2 diabetes mellitus with hyperglycemia; L60.3 Nail dystrophy | CPT/HCPCS: 11056; 11721 ==

== ENCOUNTER 2023-12-05 10:42 | Outpatient (CLI) | payer MEDICARE, MEDICAID, SELFPAY ==
--- NOTE | 2023-12-05 11:15 | USCV_ITS ---
BernardinoNoemí terry Age: 73 Gender: F : 1950 Exam Date: 12/05/2023 10:56 Ordering Phys: Barrie Hays MD (Andy) ([email or web address]/[facility] [place]) Technologist: [place] [facility] [place]: rt cea Risk Factors: Previous Vascular Surgery: Right Brachial BP: / Left Brachial BP: / Right Left Velocity (cm/s) Spectral Plaque Velocity (cm/s) Spectral Plaque Syst/Diast Broadening Syst/Diast Broadening 62.30/ 7.40 Prox CCA 47.50 / 16.40 43.90/ 9.70 Mid CCA 59.60 / 20.60 46.30/ 13.30 Distal CCA 57.90 / 19.70 222.60/87.00 Prox ICA 78.00 / 23.00 347.40/108.20 Mid ICA 75.90 / 31.50 96.70/ 38.00 Distal ICA 62.30 / 19.60 105.90 ECA 355.10 7.50 ICA/CCA 1.30 Antegrade Vertebral Antegrade 32.90/ 6.20 cm/s 64.70/ 19.50 cm/s Tri Subclavian Tri 90.00 121.8 0 FINDINGS Comparison:. 06/20/23 Severe obstructive lesions noted in the right internal carotid artery , progression of velocity since the prior exam. Diastolic velocity is marked elevated also. Focal plaque in the right bifurcation. Mild left carotid stenosis. Antegrade vertebral arteries. CONCLUSIONS Right ICA stenosis 70-99%. Stenosis continuing to progress. Left ICA stenosis < 50%. Dr. Marce Valencia DO (Electronically Signed) Final Date: 05 December 2023 12:23 S
== END 2023-12-05 10:43 | disposition home or self-care (01) ==
LOC: RAD 10:42
PROVIDERS: PCP Family Medicine Adult Medicine; Visit Provider Thoracic Surgery (Cardiothoracic Vascular Surgery)
DX: I65.23 Occlusion and stenosis of bilateral carotid arteries (principal)
CPT/HCPCS: 93880

== ENCOUNTER 2023-12-14 11:01 | Outpatient (CLI) | payer MEDICARE, SELFPAY ==
[2023-12-14 11:52] LABS: Alanine Aminotransferase 10 U/L (0-33); Albumin Level 3.8 g/dL (3.5-5.2); Alkaline Phosphatase 73 U/L (35-105); Anion Gap 13.4 (5-19); Aspartate Amino Transferase 12 U/L (0-32); Blood Urea Nitrogen 22 mg/dL (8-23); Calcium 9.2 mg/dL (8.5-10.5); Carbon Dioxide 27 mmol/L (22-29); Chloride 103 mmol/L (98-107); Chol HDL Ratio 3.04 mg/dL (0.0-4.40); Cholesterol 158 mg/dL (0-200); Globulin 2.7 g/dL (1.3-4.6); Glucose 134 mg/dL (65-115); HDL Cholesterol 52 mg/dL (60-100); LDL Cholesterol Calculated 85 mg/dL (50-129); LDL HDL Ratio 1.63 RATIO (0.00-3.22); Osmolality Calculated 293 mOsm/kg (285-295); Potassium 4.4 mmol/L (3.5-5.1); Sodium 139 mmol/L (136-145); Total Bilirubin 0.2 mg/dL (0.15-1.2); Total Protein 6.5 g/dL (6.6-8.7); Triglycerides 106 mg/dL (0-150)
[2023-12-14 11:53] LABS: Creatinine Urine, Random 31 mg/dL (28-217); Microalbumin Random Urine 8 ug/dL (0-20)
[2023-12-14 11:59] LABS: Estmated Average Glucose 263; Hemoglobin A1C 10.8 % (4.0-6.0)
[2023-12-14 12:28] LABS: Microalbum Creatinine Ratio Ur 258 mg/dL (0-20)
--- NOTE | 2024-01-10 14:30 | CT_ITS ---
WS: [id number] CTA NECK TECHNIQUE: Contrast enhanced CTA of the neck with coronal and sagittal reformatted images and maximum intensity projection (MIP) images. NASCET criteria utilized. CLINICAL INFORMATION: bilat carotid stenosis COMPARISON: Ultrasound [phone] DLP: 250.[address] scans at [facility] use at least one of these dose optimization techniques: automated e xposure control; mA and/or kV adjustment per patient size (includes targeted exams where dose is matc hed to clinical indication); or iterative reconstruction. FINDINGS: RIGHT: RIGHT common carotid artery is patent. High-grade stenosis of the RIGHT proximal ICA with calc ified atheromatous plaque. Tiny amount of residual peripheral flow. RIGHT ICA remains patent to the s kull base slightly decreased in caliber. Findings compatible with high-grade stenosis. LEFT: LEFT common carotid artery is patent. Moderate calcified thrombus plaque LEFT carotid bulb exte nding into the ICA. LEFT proximal ICA stenosis measures 28%. LEFT ICA is patent to the skull base. LEFT dominant vertebral artery. Smaller but patent RIGHT vertebral artery which mainly ends in PICA. Proximal basilar artery is patent. Persistent LEFT JAVA CORE DEVELOPER. Normal vascularity to the JAVA CORE DEVELOPER territory bilaterally. Both ICAs are patent at the skull base. Cavernous carotid calcification. Normal vascularity to the pa rtially visualized EMMANUELLE and proximal visualized MCA territories. Mucosal thickening in the paranasal sinuses. Mastoid air cells are well aerated. Normal posterior arnoldo opharynx. Normal parapharyngeal fat.
[2024-01-10] MEDS: iohexol 350 mg/mL 500 mL Btl (per mL) IV (14:41)
== END 2023-12-14 11:02 | disposition home or self-care (01) ==
LOC: RAD 11:02
PROVIDERS: Internal Medicine; PCP Family Medicine Adult Medicine; Visit Provider Thoracic Surgery (Cardiothoracic Vascular Surgery)
DX: E11.42 Type 2 diabetes mellitus with diabetic polyneuropathy (principal)
CPT/HCPCS: 36415; 80053; 80061; 82044; 83036

== ENCOUNTER → 2023-12-23 10:37 | Outpatient (BNVA) | payer MEDICARE, SELFPAY | PROVIDERS: PCP Family Medicine Adult Medicine; Visit Provider Internal Medicine | DX: E11.65 Type 2 diabetes mellitus with hyperglycemia (principal); N18.31 Chronic kidney disease, stage 3a; E78.9 Disorder of lipoprotein metabolism, unspecified; E11.22 Type 2 diabetes mellitus with diabetic chronic kidney disease; Z79.4 Long term (current) use of insulin | CPT/HCPCS: 99214 ==

== ENCOUNTER → 2023-12-28 12:32 | Outpatient (BNVA) | payer MEDICARE, SELFPAY | PROVIDERS: PCP Family Medicine Adult Medicine; Visit Provider Podiatrist Foot & Ankle Surgery | DX: I73.9 Peripheral vascular disease, unspecified (principal); E11.65 Type 2 diabetes mellitus with hyperglycemia; L60.3 Nail dystrophy; L84 Corns and callosities; M20.41 Other hammer toe(s) (acquired), right foot; M20.42 Other hammer toe(s) (acquired), left foot; M21.41 Flat foot [pes planus] (acquired), right foot; M21.42 Flat foot [pes planus] (acquired), left foot | CPT/HCPCS: 11056; 11721 ==

== ENCOUNTER 2024-01-10 14:08 | Outpatient (CLI) | payer MEDICARE, SELFPAY ==
--- NOTE | 2024-01-10 08:29 | CT_ITS ---
WS: [id number] CTA NECK TECHNIQUE: Contrast enhanced CTA of the neck with coronal and sagittal reformatted images and maximum intensity projection (MIP) images. NASCET criteria utilized. CLINICAL INFORMATION: bilat carotid stenosis COMPARISON: Ultrasound [id number] DLP: 250.[address] scans at [facility] use at least one of these dose optimization techniques: automated e xposure control; mA and/or kV adjustment per patient size (includes targeted exams where dose is matc hed to clinical indication); or iterative reconstruction. FINDINGS: RIGHT: RIGHT common carotid artery is patent. High-grade stenosis of the RIGHT proximal ICA with calc ified atheromatous plaque. Tiny amount of residual peripheral flow. RIGHT ICA remains patent to the s kull base slightly decreased in caliber. Findings compatible with high-grade stenosis. LEFT: LEFT common carotid artery is patent. Moderate calcified thrombus plaque LEFT carotid bulb exte nding into the ICA. LEFT proximal ICA stenosis measures 28%. LEFT ICA is patent to the skull base. LEFT dominant vertebral artery. Smaller but patent RIGHT vertebral artery which mainly ends in PICA. Proximal basilar artery is patent. Persistent LEFT PILOT SUPERVISOR. Normal vascularity to the PILOT SUPERVISOR territory bilaterally. Both ICAs are patent at the skull base. Cavernous carotid calcification. Normal vascularity to the pa rtially visualized EMMANUELLE and proximal visualized MCA territories. Mucosal thickening in the paranasal sinuses. Mastoid air cells are well aerated. Normal posterior arnoldo opharynx. Normal parapharyngeal fat. CT/CT angio neck [id number] IMPRESSION: 1. High-grade proximal RIGHT ICA stenosis approximately 7 mm distal to the bif urcation with calcified atheromatous plaque. Tiny string sign with a tiny amoun t of peripheral flow. Recommend vascular surgery consult. Findings compatible w ith high-grade stenosis. RIGHT ICA remains patent to the skull base. 2. Less than 50% LEFT ICA stenosis. 3. 6 mm nodule RIGHT lung apex. This could be followed up with chest CT.
== END 2024-01-10 14:09 | disposition home or self-care (01) ==
LOC: RAD 14:08
PROVIDERS: PCP Family Medicine Adult Medicine; Visit Provider Thoracic Surgery (Cardiothoracic Vascular Surgery)
DX: I65.23 Occlusion and stenosis of bilateral carotid arteries (principal); R91.1 Solitary pulmonary nodule; J34.89 Other specified disorders of nose and nasal sinuses
CPT/HCPCS: 70498; Q9967

== ENCOUNTER 2024-02-13 09:22 | Outpatient (CLI) | payer MEDICARE, SELFPAY ==
--- NOTE | 2024-02-13 09:45 | CT_ITS ---
WS: [id number] CT chest wo con [id number] HISTORY: Right lung nodule TECHNIQUE: Axial imaging performed through the thorax. Coronal and sagittal reformats are submitted. All CT scans at [facility] use at least one of these dose optimization techniques: automated exposure control; mA and/or kV adjustment per patient size (includes targeted exams where dose is mat ched to clinical indication); or iterative reconstruction. CONTRAST: None DLP: 459.56 mGy.cm COMPARISON: 11/20/2010 and 01/02/2024 Lungs and central airway: Normally aerated lungs. The previously described 5 mm nodule towards the RI GHT apex is identified but appears much smaller today. This is probably due to the slice selection an d slightly larger cuts. This nodule was probably also present on the study from 2010 without increase in size. There is a similar configuration to the prior exam. Benign granuloma anterior RIGHT upper l obe. No additional mass or nodule. No pneumonia. Pleura: Normal. No pleural effusion. Heart and pericardium: Normal size heart. Mediastinum and darleen: No mediastinum or hilar adenopathy. Vessels: Calcification within a small area of outpouching involving the aortic arch. 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 This was also present on the study of 01/10/2024 . Chest wall and lower neck: No mediastinal or hilar adenopathy. Upper abdomen: Small hiatal hernia. No adrenal mass. Osseous structures: Slight increase in the thoracic kyphosis. CT/CT chest wo con [id number] IMPRESSION: 1. Very small RIGHT apical nodule. Nodule was present on the study from 2010 w ithout significant increase in size. Nodule appeared more prominent on the CT f rom 01/10/2024 due to the very thin slice selection selection used during CT ang iographic imaging. 2. 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 Small hiatal hernia.
== END 2024-02-13 09:23 | disposition home or self-care (01) ==
LOC: RAD 09:23
PROVIDERS: PCP Family Medicine Adult Medicine; Visit Provider Family Medicine Adult Medicine
DX: R91.1 Solitary pulmonary nodule (principal); K44.9 Diaphragmatic hernia without obstruction or gangrene; R93.1 Abnormal findings on diagnostic imaging of heart and coronary circulation
CPT/HCPCS: 71250

== ENCOUNTER 2024-03-13 12:23 | Outpatient (CLI) | payer MEDICARE, SELFPAY ==
[2024-03-13 13:12] LABS: Alanine Aminotransferase 10 U/L (0-33); Albumin Level 3.9 g/dL (3.5-5.2); Alkaline Phosphatase 84 U/L (35-105); Anion Gap 17.6 (5-19); Aspartate Amino Transferase 12 U/L (0-32); Blood Urea Nitrogen 18 mg/dL (8-23); Calcium 9.8 mg/dL (8.5-10.5); Carbon Dioxide 24 mmol/L (22-29); Chloride 100 mmol/L (98-107); Chol HDL Ratio 3.72 mg/dL (0.0-4.40); Cholesterol 160 mg/dL (0-200); Globulin 3.3 g/dL (1.3-4.6); Glucose 249 mg/dL (65-115); HDL Cholesterol 43 mg/dL (60-100); LDL Cholesterol Calculated 75 mg/dL (50-129); LDL HDL Ratio 1.74 RATIO (0.00-3.22); Osmolality Calculated 294 mOsm/kg (285-295); Potassium 4.6 mmol/L (3.5-5.1); Sodium 137 mmol/L (136-145); Total Bilirubin 0.3 mg/dL (0.15-1.2); Total Protein 7.2 g/dL (6.6-8.7); Triglycerides 210 mg/dL (0-150)
[2024-03-13 13:19] LABS: Creatinine Urine, Random 41 mg/dL (28-217); Microalbum Creatinine Ratio Ur 195 mg/dL (0-20); Microalbumin Random Urine 8 ug/dL (0-20)
[2024-03-13 13:37] LABS: Estmated Average Glucose 217; Hemoglobin A1C 9.2 % (4.0-6.0)
== END 2024-03-13 12:24 | disposition home or self-care (01) ==
LOC: LAB 12:25
PROVIDERS: PCP Family Medicine Adult Medicine; Visit Provider Internal Medicine
DX: E11.65 Type 2 diabetes mellitus with hyperglycemia (principal); N18.31 Chronic kidney disease, stage 3a
CPT/HCPCS: 36415; 80053; 80061; 82044; 83036

== ENCOUNTER → 2024-03-19 10:25 | Outpatient (BNVA) | payer MEDICARE, SELFPAY | PROVIDERS: PCP Family Medicine Adult Medicine; Visit Provider Internal Medicine | DX: E11.65 Type 2 diabetes mellitus with hyperglycemia (principal); E78.9 Disorder of lipoprotein metabolism, unspecified; N18.31 Chronic kidney disease, stage 3a; E11.22 Type 2 diabetes mellitus with diabetic chronic kidney disease; Z79.4 Long term (current) use of insulin | CPT/HCPCS: 99214 ==

== ENCOUNTER → 2024-03-28 13:17 | Outpatient (BNVA) | payer MEDICARE, SELFPAY | PROVIDERS: PCP Family Medicine Adult Medicine; Visit Provider Podiatrist Foot & Ankle Surgery | DX: I73.9 Peripheral vascular disease, unspecified (principal); E11.65 Type 2 diabetes mellitus with hyperglycemia; L60.3 Nail dystrophy; L84 Corns and callosities | CPT/HCPCS: 11056; 11721 ==

== ENCOUNTER 2024-04-02 11:50 | Outpatient (CLI) | payer MEDICARE, SELFPAY ==
[2024-04-02 12:31] LABS: Basophils % 0.2 %; Eosinophils # 0.2 10^3/uL (0.0-0.8); Eosinophils % 1.2 %; Hematocrit 38.5 % (36-47); Lymphocytes # 2.1 10^3/uL (0.8-4.8); Mean Corpuscular HGB Conc 33.8 g/dL (30-55); Mean Corpuscular Hemoglobin 29.2 pg (27-33); Mean Corpuscular Volume 86.5 fl (85-98); Mean Platelet Volume 9.7 fL (7.4-10.4); Monocytes # 0.8 10^3/uL (0.2-0.9); Monocytes % 6.1 %; Neutrophils # 9.14 10^3/uL (1.8-7.7); Nucleated Red Blood Cells % 0 %; Platelet Count 256 10^3/cmm (157-399); Red Blood Count 4.45 10^6/uL (3.85-5.65); Red Cell Distribution Width 14.2 % (12.1-15.1); White Blood Count 12.21 10^3/uL (3.29-11.43)
[2024-04-02 12:56] LABS: Calcium 9.6 mg/dL (8.5-10.5)
[2024-04-02 12:58] LABS: Creatinine Urine, Random 50 mg/dL (28-217); Microalbumin Random Urine 8 ug/dL (0-20)
[2024-04-02 12:59] LABS: Albumin Level 4.1 g/dL (3.5-5.2); Anion Gap 14.5 (5-19); Blood Urea Nitrogen 19 mg/dL (8-23); Calcium 9.7 mg/dL (8.5-10.5); Carbon Dioxide 27 mmol/L (22-29); Chloride 100 mmol/L (98-107); Glucose 186 mg/dL (65-115); Phosphorus 2.9 mg/dL (2.5-4.5); Potassium 4.5 mmol/L (3.5-5.1); Sodium 137 mmol/L (136-145)
[2024-04-02 13:02] LABS: Parathyroid Hormone 34.1 pg/mL (15-65)
[2024-04-02 13:03] LABS: Microalbum Creatinine Ratio Ur 160 mg/dL (0-20)
== END 2024-04-02 11:51 | disposition home or self-care (01) ==
LOC: LAB 11:54
PROVIDERS: PCP Family Medicine Adult Medicine; Visit Provider Registered Nurse
DX: E55.9 Vitamin D deficiency, unspecified (principal); N18.32 Chronic kidney disease, stage 3b
CPT/HCPCS: 36415; 80069; 82044; 82310; 82652; 83970; 85025

== ENCOUNTER → 2024-06-27 14:20 | Outpatient (BNVA) | payer MEDICARE, SELFPAY | PROVIDERS: PCP Family Medicine Adult Medicine; Visit Provider Podiatrist Foot & Ankle Surgery | DX: I73.9 Peripheral vascular disease, unspecified (principal); E11.65 Type 2 diabetes mellitus with hyperglycemia; L60.3 Nail dystrophy; L84 Corns and callosities; Z79.4 Long term (current) use of insulin | CPT/HCPCS: 11056; 11721 ==

== ENCOUNTER 2024-07-10 12:24 | Outpatient (CLI) | payer MEDICARE, SELFPAY ==
[2024-07-10 13:24] LABS: Alanine Aminotransferase 9 U/L (0-33); Albumin Level 3.8 g/dL (3.5-5.2); Alkaline Phosphatase 67 U/L (35-105); Anion Gap 12.8 (5-19); Aspartate Amino Transferase 13 U/L (0-32); Blood Urea Nitrogen 21 mg/dL (8-23); Calcium 9.6 mg/dL (8.5-10.5); Carbon Dioxide 28 mmol/L (22-29); Chloride 100 mmol/L (98-107); Chol HDL Ratio 3.27 mg/dL (0.0-4.40); Cholesterol 144 mg/dL (0-200); Globulin 2.9 g/dL (1.3-4.6); Glucose 178 mg/dL (65-115); HDL Cholesterol 44 mg/dL (60-100); LDL Cholesterol Calculated 68 mg/dL (50-129); LDL HDL Ratio 1.55 RATIO (0.00-3.22); Osmolality Calculated 289 mOsm/kg (285-295); Potassium 4.8 mmol/L (3.5-5.1); Sodium 136 mmol/L (136-145); Total Bilirubin 0.3 mg/dL (0.15-1.2); Total Protein 6.7 g/dL (6.6-8.7); Triglycerides 160 mg/dL (0-150)
[2024-07-10 13:27] LABS: Creatinine Urine, Random 89 mg/dL (28-217); Microalbum Creatinine Ratio Ur 146 mg/dL (0-20); Microalbumin Random Urine 13 ug/dL (0-20)
[2024-07-10 13:56] LABS: Estmated Average Glucose 214; Hemoglobin A1C 9.1 % (4.0-6.0)
== END 2024-07-10 12:25 | disposition home or self-care (01) ==
LOC: LAB 12:26
PROVIDERS: PCP Family Medicine Adult Medicine; Visit Provider Internal Medicine
DX: E11.65 Type 2 diabetes mellitus with hyperglycemia (principal); E78.9 Disorder of lipoprotein metabolism, unspecified; N18.31 Chronic kidney disease, stage 3a
CPT/HCPCS: 36415; 80053; 80061; 82044; 83036

== ENCOUNTER → 2024-07-19 10:49 | Outpatient (BNVA) | payer MEDICARE, SELFPAY | PROVIDERS: PCP Family Medicine Adult Medicine; Visit Provider Internal Medicine | DX: E11.65 Type 2 diabetes mellitus with hyperglycemia (principal); N18.31 Chronic kidney disease, stage 3a; E78.9 Disorder of lipoprotein metabolism, unspecified; E11.22 Type 2 diabetes mellitus with diabetic chronic kidney disease; Z79.4 Long term (current) use of insulin | CPT/HCPCS: 99214 ==

== ENCOUNTER → 2024-08-22 12:00 | Outpatient (BNVA) | payer MEDICARE, SELFPAY | PROVIDERS: PCP Family Medicine Adult Medicine; Visit Provider Internal Medicine | DX: E11.65 Type 2 diabetes mellitus with hyperglycemia (principal); E78.9 Disorder of lipoprotein metabolism, unspecified; N18.31 Chronic kidney disease, stage 3a | CPT/HCPCS: 99213 ==

== ENCOUNTER 2024-08-31 16:11 | Outpatient (CLI) | payer MEDICARE, SELFPAY ==
--- NOTE | 2024-08-31 16:25 | XRR_ITS ---
PROCEDURE INFORMATION: Exam: XR Right Hip Exam date and time: 08/31/2024 4:31 PM Age: 74 years old Clinical indication: Hip pain; Patient HX: Pain in right hip for the last several years. No acute injury. PT states it pops and feels like its grinding; Additional info: R hip pain--worse since last night; TECHNIQUE: Imaging protocol: Radiologic exam of the right hip. Views: 1 view hip with pelvis when performed. COMPARISON: MR hip RT wo con* [id number] 05/28/2022 1:14 PM FINDINGS: Bones/joints: Moderate osteoarthritis of the right hip without evidence of fracture or subluxation. Soft tissues: No gross soft tissue abnormality. XR/XR hip RT 2-3V wo/w pel* [id number] IMPRESSION: 1. Osteoarthritis without evidence of fracture or subluxation. If there is concern for labral, muscle or tendon pathology, follow-up outpatient MRI may be helpful.
== END 2024-08-31 16:12 | disposition home or self-care (01) ==
LOC: RAD 16:13
PROVIDERS: PCP Family Medicine Adult Medicine; Visit Provider Family Medicine
DX: M16.11 Unilateral primary osteoarthritis, right hip (principal); G89.29 Other chronic pain
CPT/HCPCS: 73502

== ENCOUNTER → 2024-09-24 10:41 | Outpatient (BNVA) | payer MEDICARE, SELFPAY | PROVIDERS: PCP Family Medicine Adult Medicine; Visit Provider Podiatrist Foot & Ankle Surgery | DX: I73.9 Peripheral vascular disease, unspecified (principal); E11.65 Type 2 diabetes mellitus with hyperglycemia; L60.3 Nail dystrophy; L84 Corns and callosities; Z79.4 Long term (current) use of insulin | CPT/HCPCS: 11056; 11721 ==

== ENCOUNTER 2024-11-15 11:19 | Outpatient (CLI) | payer MEDICARE, SELFPAY ==
[2024-11-15 12:27] LABS: Alanine Aminotransferase 14 U/L (0-33); Albumin Level 3.7 g/dL (3.5-5.2); Alkaline Phosphatase 83 U/L (35-105); Anion Gap 12.3 (5-19); Aspartate Amino Transferase 16 U/L (0-32); Blood Urea Nitrogen 20 mg/dL (8-23); Carbon Dioxide 27 mmol/L (22-29); Chloride 104 mmol/L (98-107); Chol HDL Ratio 3.15 mg/dL (0.0-4.40); Cholesterol 129 mg/dL (0-200); Globulin 3.2 g/dL (1.3-4.6); Glucose 109 mg/dL (65-115); HDL Cholesterol 41 mg/dL (60-100); LDL Cholesterol Calculated 60 mg/dL (50-129); LDL HDL Ratio 1.46 RATIO (0.00-3.22); Osmolality Calculated 291 mOsm/kg (285-295); Potassium 4.3 mmol/L (3.5-5.1); Sodium 139 mmol/L (136-145); Total Bilirubin 0.2 mg/dL (0.15-1.2); Total Protein 6.9 g/dL (6.6-8.7); Triglycerides 139 mg/dL (0-150)
[2024-11-15 12:33] LABS: Estmated Average Glucose 197; Hemoglobin A1C 8.5 % (4.0-6.0)
[2024-11-15 12:45] LABS: Creatinine Urine, Random 82 mg/dL (28-217); Microalbumin Random Urine 18 ug/dL (0-20)
[2024-11-15 12:49] LABS: Microalbum Creatinine Ratio Ur 220 mg/dL (0-20)
== END 2024-11-15 11:20 | disposition home or self-care (01) ==
LOC: LAB 11:20
PROVIDERS: PCP Family Medicine; Visit Provider Internal Medicine
DX: E11.65 Type 2 diabetes mellitus with hyperglycemia (principal); E78.9 Disorder of lipoprotein metabolism, unspecified
CPT/HCPCS: 36415; 80053; 80061; 82044; 83036

== ENCOUNTER → 2024-11-21 11:37 | Outpatient (BNVA) | payer MEDICARE, SELFPAY | PROVIDERS: PCP Family Medicine; Visit Provider Internal Medicine | DX: E11.65 Type 2 diabetes mellitus with hyperglycemia (principal); N18.31 Chronic kidney disease, stage 3a; E78.9 Disorder of lipoprotein metabolism, unspecified | CPT/HCPCS: 99214 ==

== ENCOUNTER → 2024-12-24 11:05 | Outpatient (BNVA) | payer MEDICARE, SELFPAY | PROVIDERS: PCP Family Medicine; Visit Provider Podiatrist Foot & Ankle Surgery | DX: E11.65 Type 2 diabetes mellitus with hyperglycemia (principal); L60.3 Nail dystrophy; L84 Corns and callosities; I73.9 Peripheral vascular disease, unspecified; Z79.4 Long term (current) use of insulin | CPT/HCPCS: 11056; 11721 ==

== ENCOUNTER 2025-01-23 13:35 | Outpatient (CLI) | payer MEDICARE, SELFPAY ==
--- NOTE | 2025-01-23 14:30 | XR_ITS ---
WS: [id number] DEXA (DUAL ENERGY X-RAY ABSORPTIOMETRY) Bone mineral density was performed using a [employer] machine. HISTORY: screening; postmenopause; leave message if doesn't answer COMPARISON: None available. Lumbar spine BMD (L1-L4): 1.133 g/cm2 T score: -0.4 Z score: 1.0 Total hip BMD: Right: 0.979. T score: -0.2 Z score: 1.1 Left forearm BMD: 0.750 g/cm2. T score: -1.4 Z score: 0.7 10 year probability of a major osteoporotic fracture is 9.7%. XR/XR DEXA axial skeleton* [id number] IMPRESSION: OSTEOPENIA based upon the WHO classification for females.
== END 2025-01-23 13:36 | disposition home or self-care (01) ==
PROVIDERS: PCP Family Medicine; Visit Provider Family Medicine
DX: Z13.820 Encounter for screening for osteoporosis (principal); Z78.0 Asymptomatic menopausal state; M85.80 Other specified disorders of bone density and structure, unspecified site
CPT/HCPCS: 77080

== ENCOUNTER 2025-02-14 11:33 | Outpatient (CLI) | payer MEDICARE, SELFPAY ==
--- NOTE | 2025-02-14 12:30 | CT_ITS ---
WS: [id number] LDCT LUNG CANCER SCREENING HISTORY: ex smoker; screening; quit 12 yrs ago; 77pk yr TECHNIQUE: Axial imaging performed from the apices to 1 cm below the costophrenic angles. Coronal and sagittal reformats are submitted with axial MIP series. All CT scans at [facility] use at least one of these dose optimization techniques: automated exposure control; mA and/or kV adjustment per patient size (includes targeted exams where dose is matched to clinical indication); or iterative reconstruction. DLP: 72.80 mGy.cm DIvol: Mean CTDIvol: 1.70 (mGy) COMPARISON: 02/13/2024 Diagnostic quality: Satisfactory Lungs: Hyperinflated lungs. Long-term stability 2 mm nodule RIGHT apex. 2 mm subpleural nodule LEFT upper lobe, image 62 series 4. Benign calcified granuloma anterior RIGHT upper lobe. Heart: Normal size heart with no pericardial effusion.. Mild scattered coronary artery calcifications. Other findings: Moderate atherosclerosis aorta. Normal size aorta and pulmonary artery. No pathologically enlarged lymph nodes. Small hiatal hernia. No adrenal mass. Diffuse pancreatic atrophy. CT/CT lung screening [id number] IMPRESSION: LUNG-RADS: 2-Benign Appearance or Behavior FOLLOW UP: 12 Month: Continue annual screening with LDCT OTHER FINDINGS (S MODIFIER): None.
[2025-02-14 13:07] LABS: Estmated Average Glucose 232; Hemoglobin A1C 9.7 % (4.0-6.0)
[2025-02-14 13:14] LABS: Creatinine Urine, Random 89 mg/dL (28-217)
[2025-02-14 13:15] LABS: Microalbum Creatinine Ratio Ur 292 mg/dL (0-20)
[2025-02-14 13:17] LABS: Alanine Aminotransferase 10 U/L (0-33); Albumin Level 3.8 g/dL (3.5-5.2); Alkaline Phosphatase 81 U/L (35-105); Anion Gap 15.7 (5-19); Aspartate Amino Transferase 12 U/L (0-32); Blood Urea Nitrogen 21 mg/dL (8-23); Calcium 9.5 mg/dL (8.5-10.5); Carbon Dioxide 25 mmol/L (22-29); Chloride 102 mmol/L (98-107); Cholesterol 141 mg/dL (0-200); Creatinine Clr Calc Pharmacy 38.2864; Globulin 2.9 g/dL (1.3-4.6); Glucose 246 mg/dL (65-115); HDL Cholesterol 47 mg/dL (60-100); Osmolality Calculated 297 mOsm/kg (285-295); Potassium 4.7 mmol/L (3.5-5.1); Sodium 138 mmol/L (136-145); Total Protein 6.7 g/dL (6.6-8.7); Triglycerides 76 mg/dL (0-150)
== END 2025-02-14 11:34 | disposition home or self-care (01) ==
PROVIDERS: Absent Provider Internal Medicine; PCP Family Medicine; Visit Provider Family Medicine
DX: Z12.2 Encounter for screening for malignant neoplasm of respiratory organs (principal); F17.211 Nicotine dependence, cigarettes, in remission; Z11.59 Encounter for screening for other viral diseases; E11.65 Type 2 diabetes mellitus with hyperglycemia; N18.31 Chronic kidney disease, stage 3a; E78.9 Disorder of lipoprotein metabolism, unspecified
CPT/HCPCS: 36415; 71271; 80053; 80061; 82044; 83036; 86803

== ENCOUNTER → 2025-02-25 10:50 | Outpatient (BNVA) | payer MEDICARE, SELFPAY | PROVIDERS: PCP Family Medicine; Visit Provider Internal Medicine | DX: E11.65 Type 2 diabetes mellitus with hyperglycemia (principal); E78.9 Disorder of lipoprotein metabolism, unspecified; N18.31 Chronic kidney disease, stage 3a | CPT/HCPCS: 99214 ==

== ENCOUNTER → 2025-03-26 11:15 | Outpatient (BNVA) | payer MEDICARE, SELFPAY | PROVIDERS: PCP Family Medicine; Visit Provider Podiatrist Foot & Ankle Surgery | DX: E11.65 Type 2 diabetes mellitus with hyperglycemia (principal); L60.3 Nail dystrophy; L84 Corns and callosities; E11.8 Type 2 diabetes mellitus with unspecified complications; Z79.4 Long term (current) use of insulin; I73.9 Peripheral vascular disease, unspecified | CPT/HCPCS: 11056; 11721 ==

== ENCOUNTER 2025-04-18 12:07 | Outpatient (CLI) | payer MEDICARE, SELFPAY ==
[2025-04-18 12:42] LABS: Hematocrit 36.0 % (36-47); Hemoglobin 11.70 g/dL (11.27-16.99); Mean Corpuscular HGB Conc 32.5 g/dL (30-55); Mean Corpuscular Hemoglobin 27.7 pg (27-33); Mean Corpuscular Volume 85.1 fl (85-98); Nucleated Red Blood Cells % 0 %; Platelet Count 300 10^3/cmm (157-399); Red Blood Count 4.23 10^6/uL (3.85-5.65); White Blood Count 11.43 10^3/uL (3.29-11.43)
[2025-04-18 13:03] LABS: UPRO/UCREAT Ratio 0.49 mg/mg CR
[2025-04-18 13:10] LABS: Calcium 9.6 mg/dL (8.5-10.5)
[2025-04-18 13:20] LABS: Albumin Level 4.0 g/dL (3.5-5.2); Anion Gap 16.1 (5-19); Blood Urea Nitrogen 22 mg/dL (8-23); Calcium 9.4 mg/dL (8.5-10.5); Carbon Dioxide 28 mmol/L (22-29); Chloride 99 mmol/L (98-107); Glucose 216 mg/dL (65-115); Potassium 4.1 mmol/L (3.5-5.1); Sodium 139 mmol/L (136-145)
== END 2025-04-18 12:08 | disposition home or self-care (01) ==
PROVIDERS: PCP Family Medicine; Visit Provider Nurse Practitioner
DX: N18.31 Chronic kidney disease, stage 3a (principal)
CPT/HCPCS: 36415; 80069; 82306; 82310; 82570; 83970; 84156; 85025

== ENCOUNTER 2025-05-27 09:54 | Outpatient (CLI) | payer MEDICARE, SELFPAY | END 2025-05-27 09:55 | disposition home or self-care (01) | LOC: LAB 09:55 | PROVIDERS: PCP Family Medicine; Visit Provider Internal Medicine | DX: E78.9 Disorder of lipoprotein metabolism, unspecified (principal); N18.31 Chronic kidney disease, stage 3a; E11.65 Type 2 diabetes mellitus with hyperglycemia | CPT/HCPCS: 80053; 80061; 82043; 83036 ==

== ENCOUNTER 2025-06-12 13:07 | Outpatient (CLI) | payer MEDICARE, SELFPAY ==
[2025-06-12 13:53] LABS: Estmated Average Glucose 220; Hemoglobin A1C 9.3 % (4.0-6.0)
[2025-06-12 13:59] LABS: Creatinine Urine, Random 80 mg/dL (28-217)
[2025-06-12 14:04] LABS: Alanine Aminotransferase 11 U/L (0-33); Albumin Level 3.9 g/dL (3.5-5.2); Alkaline Phosphatase 77 U/L (35-105); Anion Gap 17.4 (5-19); Aspartate Amino Transferase 14 U/L (0-32); Blood Urea Nitrogen 20 mg/dL (8-23); Calcium 9.2 mg/dL (8.5-10.5); Carbon Dioxide 23 mmol/L (22-29); Chloride 102 mmol/L (98-107); Cholesterol 139 mg/dL (0-200); Globulin 2.8 g/dL (1.3-4.6); Glucose 132 mg/dL (65-115); HDL Cholesterol 43 mg/dL (60-100); Osmolality Calculated 290 mOsm/kg (285-295); Potassium 4.4 mmol/L (3.5-5.1); Sodium 138 mmol/L (136-145); Total Protein 6.7 g/dL (6.6-8.7); Triglycerides 121 mg/dL (0-150)
[2025-06-12 14:11] LABS: Microalbum Creatinine Ratio Ur 663 mg/dL (0-20)
== END 2025-06-12 13:08 | disposition home or self-care (01) ==
PROVIDERS: PCP Family Medicine; Visit Provider Internal Medicine
DX: E11.42 Type 2 diabetes mellitus with diabetic polyneuropathy (principal); E11.65 Type 2 diabetes mellitus with hyperglycemia
CPT/HCPCS: 36415; 80053; 80061; 82044; 82947; 83036; 84681; 86337; 86341

== ENCOUNTER → 2025-07-02 11:23 | Outpatient (BNVA) | payer MEDICARE, SELFPAY | PROVIDERS: PCP Family Medicine; Visit Provider Podiatrist Foot & Ankle Surgery | DX: E11.65 Type 2 diabetes mellitus with hyperglycemia (principal); L60.3 Nail dystrophy; L84 Corns and callosities; E11.8 Type 2 diabetes mellitus with unspecified complications; I73.9 Peripheral vascular disease, unspecified; Z79.4 Long term (current) use of insulin | CPT/HCPCS: 11056; 11721 ==

== ENCOUNTER 2025-07-19 11:38 | Outpatient (CLI) | payer MEDICARE, SELFPAY ==
[2025-07-19 12:32] LABS: Anion Gap 15.5 (5-19); Blood Urea Nitrogen 24 mg/dL (8-23); Calcium 9.6 mg/dL (8.5-10.5); Carbon Dioxide 25 mmol/L (22-29); Chloride 98 mmol/L (98-107); Glucose 167 mg/dL (65-115); Osmolality Calculated 286 mOsm/kg (285-295); Potassium 4.5 mmol/L (3.5-5.1); Sodium 134 mmol/L (136-145)
== END 2025-07-19 11:39 | disposition home or self-care (01) ==
PROVIDERS: Family Medicine; PCP Family Medicine; Visit Provider Internal Medicine
DX: N18.32 Chronic kidney disease, stage 3b (principal)
CPT/HCPCS: 36415; 80048

== ENCOUNTER → 2025-07-25 15:00 | Outpatient (BNVA) | payer MEDICARE, SELFPAY | PROVIDERS: PCP Family Medicine; Visit Provider Family Medicine | DX: Z79.899 Other long term (current) drug therapy (principal); E11.65 Type 2 diabetes mellitus with hyperglycemia; I10 Essential (primary) hypertension; E11.42 Type 2 diabetes mellitus with diabetic polyneuropathy; Z79.4 Long term (current) use of insulin | CPT/HCPCS: 80048; 82607; 84439; 84443 ==

== ENCOUNTER 2025-08-05 11:10 | Outpatient (CLI) | payer MEDICARE, SELFPAY ==
[2025-08-05 11:53] LABS: Albumin Level 3.8 g/dL (3.5-5.2); Anion Gap 16.8 (5-19); Blood Urea Nitrogen 21 mg/dL (8-23); Calcium 9.3 mg/dL (8.5-10.5); Carbon Dioxide 24 mmol/L (22-29); Chloride 98 mmol/L (98-107); Glucose 209 mg/dL (65-115); Potassium 4.8 mmol/L (3.5-5.1); Sodium 134 mmol/L (136-145)
== END 2025-08-05 11:11 | disposition home or self-care (01) ==
PROVIDERS: PCP Family Medicine; Visit Provider Internal Medicine Nephrology
DX: N18.32 Chronic kidney disease, stage 3b (principal)
CPT/HCPCS: 36415; 80069